=== PATIENT | female | born 1945 | race Two or more races ===

== ENCOUNTER 2018-07-26 09:28 | Outpatient (CLI) | payer OTHER ==
[~2018-07-26 09:28] MED LIST: COZAAR25 MG; Cozaar PO; Levsin/Sl 0.125 MG TAB.SUBL SL; Proventil 0.083% 2.5MG/3ML AMPUL.NEB. IH; Pulmicort 0.5 MG/2 ML AMPUL IH; Singulair 10MG PO; ZOCOR20 MG
== END 2018-07-26 09:58 | disposition home or self-care (01) ==
LOC: RAD 501 09:28
DX: I10 Essential (primary) hypertension (principal); J45.22 Mild intermittent asthma with status asthmaticus; J06.9 Acute upper respiratory infection, unspecified; E78.89 Other lipoprotein metabolism disorders; F41.8 Other specified anxiety disorders

== ENCOUNTER 2018-08-01 12:19 | Outpatient (CLI) | payer OTHER | END 2018-08-01 12:31 | disposition home or self-care (01) | LOC: NUCLEAR 12:19 | DX: M81.0 Age-related osteoporosis without current pathological fracture (principal); E78.89 Other lipoprotein metabolism disorders; F41.8 Other specified anxiety disorders; I10 Essential (primary) hypertension; J06.9 Acute upper respiratory infection, unspecified; J45.22 Mild intermittent asthma with status asthmaticus; M89.8X0 Other specified disorders of bone, multiple sites; J45.901 Unspecified asthma with (acute) exacerbation ==

== ENCOUNTER 2019-01-04 08:47 | Emergency (ER) | payer OTHER ==
[~2019-01-04] VITALS: Ht 160 cm; Wt 80.3 kg
== END 2019-01-04 18:05 | disposition home or self-care (01) ==
LOC: ER 08:47
DX: K57.32 Diverticulitis of large intestine without perforation or abscess without bleeding (principal); R10.32 Left lower quadrant pain

== ENCOUNTER 2019-05-04 08:03 | Outpatient (CLI) | payer OTHER | END 2019-05-04 08:35 | disposition home or self-care (01) | LOC: MAMO-SONO 08:03 | DX: K57.00 Diverticulitis of small intestine with perforation and abscess without bleeding (principal); J44.1 Chronic obstructive pulmonary disease with (acute) exacerbation; E11.9 Type 2 diabetes mellitus without complications; J45.22 Mild intermittent asthma with status asthmaticus; M46.1 Sacroiliitis, not elsewhere classified; J45.20 Mild intermittent asthma, uncomplicated; F41.8 Other specified anxiety disorders; F32.1 Major depressive disorder, single episode, moderate; Z12.31 Encounter for screening mammogram for malignant neoplasm of breast; Z87.898 Personal history of other specified conditions ==

== ENCOUNTER 2019-08-22 11:00 | Emergency (ER) | payer OTHER ==
[~2019-08-22] VITALS: Ht 162.6 cm; Wt 76.2 kg
== END 2019-08-22 14:32 | disposition home or self-care (01) ==
LOC: ER → CPU-OBS 12:20 → ER 14:32
DX: R42 Dizziness and giddiness (principal); R07.89 Other chest pain; R11.2 Nausea with vomiting, unspecified

== ENCOUNTER 2020-02-29 06:58 | Emergency (ER) | payer OTHER ==
[~2020-02-29] VITALS: Ht 157.5 cm; Wt 80.3 kg
[2020-02-29] MEDS ORDERED: LIPITOR40 MG (07:16)
[2020-02-29] MEDS ORDERED: MONTELUKAST SODI4 M1 (07:17)
[2020-02-29] MEDS ORDERED: PLAVIX75 MG (07:17)
[2020-02-29] MEDS ORDERED: HYZAAR 50-12.51 EACH (07:17)
[2020-02-29] MEDS ORDERED: COZAAR50 MG (07:17)
[2020-02-29] MEDS ORDERED: ACID CONTROL150 MG (07:18)
[2020-02-29] MEDS ORDERED: VENTOLIN HFA18 GM (07:18)
[2020-02-29] MEDS ORDERED: NASAL MIST126 ML (07:18)
[2020-02-29] MEDS ORDERED: DICLOFENAC POTA50 MG PO (13:04)
== END 2020-02-29 13:27 | disposition home or self-care (01) ==
LOC: ER
DX: M25.442 Effusion, left hand (principal); M79.632 Pain in left forearm

== ENCOUNTER → 2020-10-30 14:57 | Outpatient (CLI) | payer OTHER ==
[~2020-10-30 14:57] MED LIST changes: +ACID CONTROL150 MG; +COZAAR50 MG; +DICLOFENAC POTA50 MG PO; +HYZAAR 50-12.51 EACH; +LIPITOR40 MG; +MONTELUKAST SODI4 M1; +NASAL MIST126 ML; +PLAVIX75 MG; +VENTOLIN HFA18 GM
== END | disposition home or self-care (01) ==
LOC: LAB 14:57
PROVIDERS: ATTEND Radiology Diagnostic Radiology
DX: N20.0 Calculus of kidney (principal)

== ENCOUNTER 2020-11-12 08:35 | Outpatient (CLI) | payer OTHER | END 2020-11-12 08:55 | disposition HB | LOC: TOM 08:35 | PROVIDERS: ATTEND Emergency Medicine Pediatric Emergency Medicine | DX: Q61.02 Congenital multiple renal cysts (principal); K44.9 Diaphragmatic hernia without obstruction or gangrene; Z12.31 Encounter for screening mammogram for malignant neoplasm of breast; R92.0 Mammographic microcalcification found on diagnostic imaging of breast; I10 Essential (primary) hypertension; R19.07 Generalized intra-abdominal and pelvic swelling, mass and lump; R19.03 Right lower quadrant abdominal swelling, mass and lump; C80.1 Malignant (primary) neoplasm, unspecified; K57.00 Diverticulitis of small intestine with perforation and abscess without bleeding; J44.1 Chronic obstructive pulmonary disease with (acute) exacerbation; E11.9 Type 2 diabetes mellitus without complications; J45.22 Mild intermittent asthma with status asthmaticus; M46.1 Sacroiliitis, not elsewhere classified; F41.8 Other specified anxiety disorders; E78.89 Other lipoprotein metabolism disorders; F32.1 Major depressive disorder, single episode, moderate | CPT/HCPCS: 71046; 74177; 77067; Q9965 ==

== ENCOUNTER 2021-11-20 15:50 | Outpatient (CLI) | payer OTHER | END 2021-11-20 15:55 | disposition home or self-care (01) | LOC: LAB 15:50 | PROVIDERS: ATTEND Radiology Diagnostic Radiology | DX: R91.1 Solitary pulmonary nodule (principal) ==

== ENCOUNTER 2021-12-04 07:50 | Outpatient (CLI) | payer OTHER | END 2021-12-04 07:51 | disposition home or self-care (01) | LOC: TOM 07:50 | PROVIDERS: ATTEND Internal Medicine Hematology & Oncology | DX: R91.1 Solitary pulmonary nodule (principal) | CPT/HCPCS: 71260; 76641; 77066; Q9965 ==

== ENCOUNTER → 2022-02-27 12:49 | Outpatient (CLI) | payer OTHER | END | disposition home or self-care (01) | LOC: NUCLEAR 12:49 | PROVIDERS: ATTEND Orthopaedic Surgery | DX: M81.0 Age-related osteoporosis without current pathological fracture (principal) ==

== ENCOUNTER 2022-04-17 07:15 | Emergency (ER) | payer OTHER ==
[~2022-04-17] VITALS: Ht 160 cm; Wt 76.2 kg
[2022-04-17] MEDS ORDERED: BENZONATATE200 M1 PO (12:39)
== END 2022-04-17 14:30 | disposition home or self-care (01) ==
LOC: ER 07:15
DX: J45.901 Unspecified asthma with (acute) exacerbation (principal); R06.02 Shortness of breath; Z20.822 Contact with and (suspected) exposure to COVID-19

== ENCOUNTER → 2022-12-28 | Outpatient (CLI) | payer OTHER ==
[~2022-12-28] MED LIST changes: +BENZONATATE200 M1 PO
== END | disposition home or self-care (01) ==
LOC: TOM 08:35
PROVIDERS: ATTEND Internal Medicine Hematology & Oncology
DX: R91.1 Solitary pulmonary nodule (principal)
CPT/HCPCS: 71260; Q9965

== ENCOUNTER 2023-01-13 15:06 | Outpatient (CLI) | payer OTHER | END 2023-01-13 15:11 | disposition home or self-care (01) | LOC: MAMO-SONO 15:06 | PROVIDERS: ATTEND Internal Medicine Hematology & Oncology | DX: Z12.31 Encounter for screening mammogram for malignant neoplasm of breast (principal) ==

== ENCOUNTER 2023-12-02 14:14 | Outpatient (CLI) | payer OTHER | END 2023-12-02 14:22 | disposition home or self-care (01) | LOC: RAD 14:14 | PROVIDERS: ATTEND Internal Medicine Pulmonary Disease | DX: J45.50 Severe persistent asthma, uncomplicated (principal); R06.3 Periodic breathing ==

== ENCOUNTER 2024-03-29 13:35 | Outpatient (CLI) | payer OTHER | END 2024-03-29 13:54 | disposition home or self-care (01) | LOC: MAMO-SONO 13:35 | PROVIDERS: ATTEND Student in an Organized Health Care Education/Training Program | DX: N60.11 Diffuse cystic mastopathy of right breast (principal); N60.12 Diffuse cystic mastopathy of left breast ==

== ENCOUNTER 2024-11-07 16:13 | Outpatient (CLI) | payer OTHER | END 2024-11-07 16:18 | disposition home or self-care (01) | LOC: RAD 16:13 | PROVIDERS: ATTEND Internal Medicine Pulmonary Disease | DX: J45.50 Severe persistent asthma, uncomplicated (principal); R06.02 Shortness of breath; J44.9 Chronic obstructive pulmonary disease, unspecified ==

== ENCOUNTER 2024-11-09 09:27 | Outpatient (CLI) | payer OTHER | END 2024-11-09 09:37 | disposition home or self-care (01) | LOC: TOM 09:27 | PROVIDERS: ATTEND Specialist | DX: K57.91 Diverticulosis of intestine, part unspecified, without perforation or abscess with bleeding (principal); N20.0 Calculus of kidney | CPT/HCPCS: 74177; Q9965 ==

== ENCOUNTER 2025-04-11 12:11 | Outpatient (CLI) | payer OTHER | END 2025-04-11 12:22 | disposition home or self-care (01) | LOC: MAMO-SONO 12:11 | PROVIDERS: ATTEND Student in an Organized Health Care Education/Training Program | DX: N60.11 Diffuse cystic mastopathy of right breast (principal); N60.12 Diffuse cystic mastopathy of left breast; Z12.31 Encounter for screening mammogram for malignant neoplasm of breast ==

== ENCOUNTER 2025-05-02 09:01 | Outpatient (CLI) | payer OTHER | END 2025-05-02 09:02 | disposition home or self-care (01) | LOC: NUCLEAR 09:01 | PROVIDERS: ATTEND Student in an Organized Health Care Education/Training Program | DX: M81.0 Age-related osteoporosis without current pathological fracture (principal); I73.9 Peripheral vascular disease, unspecified ==

== ENCOUNTER 2025-06-11 09:50 | Outpatient (CLI) | payer OTHER ==
[2025-06-11 11:16] LABS: INR 1.02
[2025-06-11 11:36] LABS: D DIMER 0.87 MG/L
[2025-06-12 11:08] LABS: HOMOCYSTEINE 8.2 umol/L (0.0-19.2)
[2025-06-13 22:28] LABS: PROTEIN C ACTIVITY 96 % (73-180); PROTEIN S ACTIVITY 100 % (63-140)
== END 2025-06-11 09:54 | disposition home or self-care (01) ==
LOC: LAB 09:50
PROVIDERS: ATTEND Specialist
DX: I82.429 Acute embolism and thrombosis of unspecified iliac vein (principal); D68.8 Other specified coagulation defects; M32.10 Systemic lupus erythematosus, organ or system involvement unspecified; D68.62 Lupus anticoagulant syndrome

== ENCOUNTER 2025-08-21 12:46 | Outpatient (CLI) | payer OTHER ==
[2025-08-21 14:38] LABS: CREATININE SERUM 0.68 mg/dL (0.55-1.02); GFR 83.25
== END 2025-08-21 12:54 | disposition home or self-care (01) ==
LOC: LAB 12:46
DX: R91.1 Solitary pulmonary nodule (principal)

== ENCOUNTER 2025-08-31 07:14 | Outpatient (CLI) | payer OTHER | END 2025-08-31 07:16 | disposition home or self-care (01) | LOC: TOM 07:14 | PROVIDERS: ATTEND Internal Medicine Hematology & Oncology | DX: R91.1 Solitary pulmonary nodule (principal) | CPT/HCPCS: 71260; Q9965 ==